=== PATIENT | female | born 1980 | race Caucasian/White ===

== ENCOUNTER 2019-08-30 09:10 | Outpatient (CLI) | payer OTHER, SELFPAY ==
--- NOTE | 2019-08-30 09:12 | ECG_ITS ---
Measurements Intervals [place] Rate: 95 P: 72 [place]: 156 QRS: -5 QRSD: 92 T: 27 QT: 378 QTc: 476 Interpretive Statements SINUS RHYTHM DELAYED PRECORDIAL R/S TRANSITION BASELINE ARTIFACT- I, II, III, AVR, AVL, AVF BORDERLINE ECG Electronically Signed On 08-30-2019 9:34:53 CDT by Damon Workman D.O.
[2019-08-30 09:39] LABS: Hematocrit 38.5 % (37.0-47.0); Hemoglobin 13.3 g/dL (12.0-15.0)
[2019-08-30 09:57] LABS: Blood Urea Nitrogen 9 mg/dL (7-17); Calcium 8.9 mg/dL (8.4-10.2); Carbon Dioxide 22 mmol/L (22-30); Chloride 103 mmol/L (98-107); Estimated Glomerular Filt Rate > 60; Glucose 162 mg/dL (65-105); Potassium 3.9 mmol/L (3.4-5.0); Sodium 134 mmol/L (137-145)
== END 2019-08-30 09:11 | disposition home or self-care (01) ==
LOC: ANHSURGERY 09:12
PROVIDERS: Anesthesiology; PCP Family Medicine; Visit Provider Obstetrics & Gynecology
DX: Z01.818 Encounter for other preprocedural examination (principal); E11.9 Type 2 diabetes mellitus without complications; R87.619 Unspecified abnormal cytological findings in specimens from cervix uteri
CPT/HCPCS: 36415; 80048; 85014; 85018; 93005

== ENCOUNTER 2019-09-05 01:08 | Outpatient (CLI) | payer OTHER, SELFPAY ==
[2019-09-05 18:07] LABS: SARS-CoV-2 RNA PCR Negative
== END 2019-09-05 01:09 | disposition home or self-care (01) ==
LOC: ANHCOVIDDT 01:08
PROVIDERS: PCP Family Medicine; Visit Provider Obstetrics & Gynecology
DX: Z01.818 Encounter for other preprocedural examination (principal); Z11.59 Encounter for screening for other viral diseases
CPT/HCPCS: 87635; C9803; U0003

== ENCOUNTER 2019-09-07 02:07 | Day surgery (SDC) | payer OTHER, SELFPAY ==
[2019-08-29 11:41] VITALS: BMI 45.4
--- NOTE | 2019-09-05 10:19 | PM.IMHP ---
H&P: HPI History of Present Illness Chief complaint: Abnormal PAP Narrative: Tracee Ortega is a 38 year old female who is admitted for hysteroscopy dilatation curettage. She has has ultrasound showing thickened endometrium and she has had irregular bleeding. She has had no success with pills. She also has a medical issues prior to well and was and benefits reviewed. She read the [employer] handout entitled hysteroscopy, as well as dilatation curettage, she had all questions answered asked to proceed Review of Systems Review of Systems: All systems reviewed & are unremarkable except as noted in HPI and below PMFSH Family History Family History Father Hypertension Grandparent Family history of lung cancer Diabetes mellitus Mother Family history of diabetes mellitus in first degree relative Other Family history of malignant neoplasm Social History Social History Years smoked: 5 Smoking status: Light tobacco smoker Additional smoking assessment comments: STATES INTERMITTENT TOBACCO USE. Alcohol intake: never Spiritual care concerns: No Meds Home Medications and Allergies Home Medications Medication Instructions Recorded Confirmed Type acyclovir 400 mg tablet 400 mg PO TID PRN 01/22/19 08/29/19 History glimepiride 4 mg tablet 4 mg PO BID tablet 01/22/19 08/29/19 History ibuprofen 800 mg tablet 800 mg PO TID PRN 01/22/19 08/29/19 History levothyroxine 100 mcg tablet 100 mcg PO DAILY 01/22/19 08/29/19 History omeprazole magnesium 20 mg 20 mg PO BID 01/22/19 08/29/19 History tablet,delayed release tizanidine 4 mg tablet 4 mg PO TID PRN 01/22/19 08/29/19 History venlafaxine 150 mg 150 mg PO BID #60 cap 05/24/19 08/29/19 Rx capsule,extended release 24 hr alprazolam 0.5 mg tablet 0.5 mg PO TID PRN #30 tablet 07/18/19 08/29/19 Rx lisinopril 5 mg tablet 5 mg PO DAILY #30 tablet 08/07/19 08/29/19 Rx bupropion HCl 300 mg 24 hr tablet, 300 mg PO QAM #90 tablet 06/25/20 07/01/20 Rx extended release metoprolol tartrate 25 mg tablet 25 mg PO BID #60 tablet 08/23/19 08/29/19 Rx cholecalciferol (vitamin D3) 50 mcg PO 3XW 08/29/19 08/29/19 History [Vitamin D3] multivitamin 1 tablet PO DAILY 08/29/19 08/29/19 History norgestimate-ethinyl estradiol 1 tablet PO DAILY 08/29/19 08/29/19 History [Estarylla] pioglitazone [Actos] 30 mg PO DAILY 08/29/19 08/29/19 History Allergies Allergy/AdvReac Type Severity Reaction Status Date / Time aspirin Allergy Unknown difficuty Verified 08/29/19 11:43 breathing cefuroxime Allergy Unknown Itching Verified 08/29/19 11:43 Penicillins Allergy Unknown Rash Verified 08/29/19 11:43 metformin AdvReac Mild diarrhea Verified 08/29/19 11:43 sitagliptin AdvReac Mild stomach Verified 08/29/19 11:43 pains Exam Const: General: no acute distress Eyes: General: appearance normal, both eyes and all related structures Neck: Neck: supple and no JVD Thyroid: thyroid normal Resp: Effort & Inspection: normal respiratory effort Auscultation: clear to auscultation bilaterally Cardio: Rate: regular rate Rhythm: regular rhythm GI: Inspection: non-distended GI Palp: Yes Soft to palpation, No Tenderness to palpation present (GI) and No Guarding due to palpation present (GI) Auscultation: normal bowel sounds : General: Yes bladder normal to palpation External Female Exam: normal external appearance Speculum Exam - Vagina: normal vaginal discharge and No vaginal bleeding Speculum Exam - Cervix: nontender Bimanual exam- vagina & uterus: bladder normal to palpation and No Cervical tenderness present OB/external & speculum: No vaginal bleeding Skin: General skin exam: no rashes or lesions noted Extrem: General: normal to inspection and no edema Psych: Mental Status: mental status grossly normal Affect: normal affect Assessment and Plan Additiona
[2019-09-07] VITALS (7 sets, daily range): BP systolic 106–117; BP diastolic 66–82; PULSE 75–112; RESP 18; TEMP 35.9–36.2; O2SAT 97–100
--- NOTE | 2019-09-07 06:49 | WPDHPUPDATE1 ---
History and Physical Update Update Date/Time: 09/07/19 06:49 History and Physical has been reviewed, including an updated exam of the patient. There are NO changes in the patient's condition. Risks, benefits, and alternatives have been discussed and questions answered. Patient agrees to proceed with procedure.
[2019-09-07] MEDS: LACTATED RINGERS 1,000 ML 30 ML IV CONT (10:10)
--- NOTE | 2019-09-07 10:18 | WPDANESEPPF ---
Anes - Initial Pre Proc Eval Procedure: Operation Date: 09/07/19 11:30 Proposed Procedures p Hysteroscopy, Dilation and Curettage - Magnus Allen MD Date/Time: 09/07/19 10:18 Surgeon: Magnus Allen MD Pre Op Diagnosis: Abnormal PAP Patient Data Age: 38 Gender: F Height: 5 ft 7 in Weight: 131.54 kg Last Vital Signs Temp 96.6 F L 09/07/19 10:15 Pulse 103 H 09/07/19 10:15 Resp 18 09/07/19 10:15 BP 117/82 09/07/19 10:15 Pulse Ox 98 09/07/19 10:15 Allergies Allergy/AdvReac Type Severity Reaction Status Date / Time aspirin Allergy Severe difficuty Verified 09/07/19 09:46 breathing cefuroxime Allergy Severe Itching Verified 09/07/19 09:46 Penicillins Allergy Intermediate Rash Verified 09/07/19 09:46 metformin AdvReac Mild diarrhea Verified 09/07/19 09:46 sitagliptin AdvReac Mild stomach Verified 09/07/19 09:46 pains Home Medications Medication Instructions Recorded Confirmed Type acyclovir 400 mg tablet 400 mg PO TID PRN 01/22/19 09/07/19 History glimepiride 4 mg tablet 4 mg PO BID tablet 01/22/19 09/07/19 History ibuprofen 800 mg tablet 800 mg PO TID PRN 01/22/19 08/29/19 History levothyroxine 100 mcg tablet 100 mcg PO DAILY 01/22/19 09/07/19 History omeprazole magnesium 20 mg 20 mg PO BID 01/22/19 09/07/19 History tablet,delayed release tizanidine 4 mg tablet 4 mg PO TID PRN 01/22/19 08/29/19 History venlafaxine 150 mg 150 mg PO BID #60 cap 05/24/19 09/07/19 Rx capsule,extended release 24 hr alprazolam 0.5 mg tablet 0.5 mg PO TID PRN #30 tablet 07/18/19 09/07/19 Rx lisinopril 5 mg tablet 5 mg PO DAILY #30 tablet 08/07/19 09/07/19 Rx bupropion HCl 300 mg 24 hr tablet, 300 mg PO QAM #90 tablet 08/23/19 09/07/19 Rx extended release metoprolol tartrate 25 mg tablet 25 mg PO BID #60 tablet 08/23/19 09/07/19 Rx cholecalciferol (vitamin D3) 50 mcg PO 3XW 08/29/19 09/07/19 History [Vitamin D3] multivitamin 1 tablet PO DAILY 08/29/19 09/07/19 History norgestimate-ethinyl estradiol 1 tablet PO DAILY 08/29/19 09/07/19 History [Estarylla] pioglitazone [Actos] 30 mg PO DAILY 08/29/19 09/07/19 History hydrocodone-acetaminophen [Ponca] 1 tablet PO Q4H PRN #20 tablet 09/07/19 Rx Patient hx anesthesia problems: none Family hx anesthesia problems: none PMFSH Family History Family History Father Hypertension Grandparent Family history of lung cancer Diabetes mellitus Mother Family history of diabetes mellitus in first degree relative Other Family history of malignant neoplasm Social History Social History Years smoked: 5 Smoking status: Light tobacco smoker Additional smoking assessment comments: STATES INTERMITTENT TOBACCO USE. Alcohol intake: never Spiritual care concerns: No Anes - Eval Final PreProcedure Day of Procedure 09/07/19 10:18 Patient weight: morbidly obese Heart: regular rate and rhythm Lungs: clear to auscultation Airway: Mallampati scale class III Neurological: alert and oriented Last oral intake: >/= 8 hours ASA classification: III Emergent: no Anesthetic plan: proceed Anesthesia type and monitoring: general (may use LMA) GIVS and standard monitoring Informed Consent: The patient's anesthetic plan and its attendant risks and benefits were discussed with the patient/family/POA. Questions were solicited and answers provided to the satisfaction of the patient/family/POA.
[2019-09-07 10:27] LABS: Glucose Point of Care 176 (65-105)
--- NOTE | 2019-09-07 11:29 | SUR.OPER ---
Ebl=5ml
--- NOTE | 2019-09-07 11:33 | PM.PROC ---
Procedure Note - Detailed Date of procedure: 09/07/19 Pre-op diagnosis: Abnormal PAP Surgeon: Magnus Allen MD postop diagnosis: Irregular bleeding and abnormal Pap Anesthesia: IV sedation and local Procedure: Hysteroscopy dilatation curettage Complications: None a Findings: Clots in thickened endometrium. Description of procedure: The patient was prepped and draped in the normal sterile fashion and placed in the dorsal lithotomy position. Under excellent IV sedation weighted speculum was placed in the posterior fornix of vagina. Anterior lip of the cervix was grasped with a single-tooth tenaculum and the uterus sounded to 9cm. Serial dilatation with fragmented dilators performed followed by passage of the 5mm visualizing hysteroscope using normal saline as visualizing medium. Thick endometrial tissue was seen each fallopian tube os could be seen and clots were seen. The uterus was scraped over the entire 360? until a good grating sound was heard. The instruments removed blood loss was estimated at5cc all sponge, needle, instrument counts were correct. There were no immediate complications
[2019-09-07 17:02] LABS: Glucose Point of Care 116 (65-105)
== END 2019-09-07 13:09 | disposition home or self-care (01) ==
PROVIDERS: PCP Family Medicine; Visit Provider Obstetrics & Gynecology
PROC: 0U5B8ZZ Destruction of Endometrium, Via Natural or Artificial Opening Endoscopic (ICD-10-PCS; CPT 58563; principal; 2019-09-07 11:30)
DX: N93.9 Abnormal uterine and vaginal bleeding, unspecified (principal); F17.200 Nicotine dependence, unspecified, uncomplicated; E66.01 Morbid (severe) obesity due to excess calories; Z68.42 Body mass index [BMI] 45.0-49.9, adult
CPT/HCPCS: 58558; 88305; A9270; J1100; J2250; J2405; J2704; J3010; J7030; J7120

== ENCOUNTER 2019-11-22 12:12 | Outpatient (CLI) | payer OTHER, SELFPAY ==
--- NOTE | 2019-11-22 | ECG_ITS ---
Measurements Intervals [place] Rate: 80 P: 74 ND: 153 QRS: -7 QRSD: 94 T: 13 QT: 394 QTc: 457 Interpretive Statements SINUS RHYTHM BORDERLINE T WAVE ABNORMALITY- INFERIOR LEADS BASELINE ARTIFACT- III, AVF BORDERLINE ECG Electronically Signed On 11-22-2019 13:14:47 CDT by Damon Workman D.O.
--- NOTE | ~2019-11-22 | XR_ITS ---
EXAMINATION: XR chest 2V EXAM DATE: 11/22/2019 13:40 INDICATION: High blood pressure. Preoperative gastric sleeve. TECHNIQUE: Frontal and lateral projections of the chest obtained and reviewed. Comparison is made to prior examination from 05/06/2017. FINDINGS: The lungs are clear. There are no pleural effusions. The cardiomediastinal silhouette is within normal limits. There is no pneumothorax suspected. The bones and soft tissues are unremarkab le. IMPRESSION: Normal chest x-ray exam. Reviewed, dictated and finalized at location B. IMPRESSION: Normal chest x-ray exam.
[2019-11-22 13:03] LABS: Basophils Percent Auto 0.3 % (0.2-1.2); Hematocrit 38.7 % (37.0-47.0); Hemoglobin 13.4 g/dL (12.0-15.0); Immature Granulocyte Absolute 0.04 K/mm3 (0.00-0.031); Immature Granulocyte Percent A 0.4 % (0-0.5); Lymphocytes Percent Auto 32.3 % (18.3-44.2); Mean Corpuscular HGB Conc 34.6 g/dl (32-36); Mean Corpuscular Volume 89.6 fl (80-100); Mean Platelet Volume 9.3 fl (7.4-10.4); Monocytes Absolute Auto 0.6 K/mm3 (0.1-0.6); Monocytes Percent Auto 6.8 % (2.6-8.5); Neutrophils Absolute Auto 5.4 K/mm3 (1.3-6.7); Neutrophils Percent Auto 60.2 % (45.5-73.1); Platelet Count Result 247 k/mm3 (150-375); Red Blood Count 4.32 M/mm3 (4.2-5.4)
[2019-11-22 13:13] LABS: Prothrombin Time 13.1 Seconds (11.1-14.7)
[2019-11-22 13:34] LABS: Alanine Aminotransferase 20 U/L (4-35); Albumin Level 4.2 g/dL (3.5-5.1); Alkaline Phosphatase 80 U/L (38-126); Anion Gap 9 mmol/L (8-16); Aspartate Amino Transferase 31 U/L (14-36); Bilirubin,Total 0.5 mg/dL (0.2-1.3); Blood Urea Nitrogen 10 mg/dL (7-17); Calcium 9.2 mg/dL (8.4-10.2); Carbon Dioxide 23 mmol/L (22-30); Chloride 103 mmol/L (98-107); Cholesterol 134 mg/dL (0-200); Estimated Glomerular Filt Rate > 60; Glucose 107 mg/dL (65-105); HDL Direct 33 mg/dL; Magnesium 1.5 mg/dL (1.6-2.3); Potassium 3.6 mmol/L (3.4-5.0); Sodium 135 mmol/L (137-145); Triglycerides 259 mg/dL (<150)
[2019-11-22 13:40] LABS: Vitamin D 25 Hydroxy 79.8 ng/mL
[2019-11-22 13:45] LABS: LDL Cholesterol Direct 62 mg/dL
[2019-11-22 14:23] LABS: Iron 82 ug/dL (37-170); Percent Iron Saturation 21 % (20-50)
[2019-11-22 15:20] LABS: Folic Acid 15.7 ng/mL (2.76->20)
[2019-11-26 10:34] LABS: Vitamin B1 15 nmol/L (8-30)
== END 2019-11-22 12:13 | disposition home or self-care (01) ==
LOC: ANHLAB 12:15
PROVIDERS: PCP Family Medicine; Visit Provider Surgery
DX: Z01.818 Encounter for other preprocedural examination (principal); E66.01 Morbid (severe) obesity due to excess calories
CPT/HCPCS: 36415; 71046; 80053; 80061; 82306; 82607; 82728; 82746; 83036; 83540; 83550; 83735; 83970; 84425; 84443; 85025; 85610; 93005

== ENCOUNTER 2019-12-16 12:03 | Emergency (ER) | payer OTHER, SELFPAY ==
[2019-12-16 12:18] VITALS: BP 132/65; PULSE 98; RESP 17; TEMP 37.2; O2SAT 97
--- NOTE | 2019-12-16 12:18 | ED.GENADULT ---
HPI - General Adult General Chief complaint: Upper Respiratory Infection Stated complaint: Sore throat Time Seen by Provider: 12/16/19 12:18 Source: patient Mode of arrival: ambulatory Limitations: no limitations History of Present Illness HPI narrative: 39-year-old female patient presents to the [facility] with complaints of a sore throat for the past 3 to 4 days. Patient denies any fevers, body aches or chills. Patient states she has had a little bit of ear pain with the sore throat as well but denies any coughing, chest pain or shortness of breath. 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 Patient states she has had strep throat before and states it feels very similar to when she has had strep throat in the past. Patient states she also does have allergy issues she is she has been taking a daily antihistamine as well but has not been helping with the throat pain. Related Data Home Medications Medication Instructions Recorded Confirmed glimepiride 4 mg tablet 4 mg PO BID tablet 01/22/19 12/16/19 levothyroxine 100 mcg tablet 100 mcg PO DAILY 01/22/19 12/16/19 omeprazole magnesium 20 mg 20 mg PO BID 01/22/19 12/16/19 tablet,delayed release tizanidine 4 mg tablet 4 mg PO TID PRN 01/22/19 12/16/19 cholecalciferol (vitamin D3) 50 mcg PO 3XW 08/29/19 12/16/19 [Vitamin D3] multivitamin 1 tablet PO DAILY 08/29/19 12/16/19 norgestimate-ethinyl estradiol 1 tablet PO DAILY 08/29/19 12/16/19 [Estarylla] pioglitazone [Actos] 30 mg PO DAILY 08/29/19 12/16/19 empagliflozin [Jardiance] 10 mg PO DAILY 12/16/19 12/16/19 Allergies Allergy/AdvReac Type Severity Reaction Status Date / Time aspirin Allergy Severe difficuty Verified 12/16/19 12:18 breathing cefuroxime Allergy Severe Itching Verified 12/16/19 12:18 Penicillins Allergy Intermediate Rash Verified 12/16/19 12:18 metformin AdvReac Mild diarrhea Verified 12/16/19 12:18 sitagliptin AdvReac Mild stomach Verified 12/16/19 12:18 pains Review of Systems Review of Systems: Narrative: CONSTITUTIONAL: Denies fever, chills, or sweats. EYES: Denies visual changes, redness, or discharge. ENT: Positive rhinorrhea, congestion, positive sore throat, positive bilateral otalgia. CARDIOVASCULAR: Denies chest pain, palpitations, or edema. RESPIRATORY: Denies cough or dyspnea. GASTROINTESTINAL: Denies abdominal pain, nausea, vomiting, or diarrhea. GENITOURINARY: Denies dysuria or hematuria. SKIN: Denies rash or itching. MUSCULOSKELETAL: Denies back pain, joint pain, or myalgia. NEUROLOGIC: Denies headache, numbness, or weakness. PSYCHIATRIC: Denies anxiety or depression. [facility] Past Medical History Medical History Anxiety disorder, unspecified Hypertension complicating diabetes Hypothyroidism Morbid obesity due to excess calories KATHRINE (obstructive sleep apnea) Type 2 diabetes mellitus without complications Family History Family History Father Hypertension Grandparent Family history of lung cancer Diabetes mellitus Mother Family history of diabetes mellitus in first degree relative Other Family history of malignant neoplasm Social History Social History Years smoked: 5 Smoking status: Light tobacco smoker Additional smoking assessment comments: STATES INTERMITTENT TOBACCO USE. Alcohol intake: never Spiritual care concerns: No Comments At the time of my signature I agree with nursing past medical history, surgical, social, and family history. There is no relevant family history pertinent to the presenting complaint. Exam Narrative: Exam Narrative: GENERAL: Well-appearing, well-nourished, and in no acute distress. HEAD: Normocephalic, atraumatic. EYES: PERRLA and EOMI. ENT: Nares clear, no rhinorrhea or epistaxis. Mucous membranes moist posterior pharynx with very slight eryth
[2019-12-16 12:28] VITALS: BP 132/65; PULSE 98; RESP 17; TEMP 37.2; O2SAT 97
== END 2019-12-16 12:36 | disposition home or self-care (01) ==
PROVIDERS: Emergency Provider Nurse Practitioner Family; PCP Family Medicine
DX: J02.0 Streptococcal pharyngitis (principal); Z72.0 Tobacco use; I10 Essential (primary) hypertension; E11.9 Type 2 diabetes mellitus without complications; E03.9 Hypothyroidism, unspecified; G47.33 Obstructive sleep apnea (adult) (pediatric); E66.01 Morbid (severe) obesity due to excess calories; Z68.42 Body mass index [BMI] 45.0-49.9, adult
CPT/HCPCS: 87880; 99213; G0463

== ENCOUNTER → 2020-12-25 01:35 | Outpatient (CLI) | payer OTHER, SELFPAY ==
[2020-12-25 17:33] LABS: SARS-CoV-2 RNA PCR Negative
== END ==
PROVIDERS: PCP Family Medicine; Visit Provider Nurse Practitioner Family
DX: R68.89 Other general symptoms and signs (principal); Z20.822 Contact with and (suspected) exposure to COVID-19
CPT/HCPCS: C9803; U0003; U0005

== ENCOUNTER 2021-02-10 09:05 | Outpatient (CLI) | payer OTHER, SELFPAY ==
--- NOTE | 2021-02-10 09:29 | ECG_ITS ---
Measurements Intervals [place] Rate: 77 P: 35 [place]: 143 QRS: -9 QRSD: 92 T: 15 QT: 401 QTc: 454 Interpretive Statements SINUS RHYTHM BASELINE ARTIFACT- I, II, III, AVR, AVL, AVF NORMAL ECG Electronically Signed On 02-10-2021 10:04:18 PROJECT ADMINISTRATIVE ASSISTANT by Damon Workman D.O.
[2021-02-10 11:10] LABS: Basophils Absolute Auto 0.1 K/mm3 (0.0-0.1); Basophils Percent Auto 0.5 % (0.2-1.2); Hemoglobin 14.8 g/dL (12.0-15.0); Immature Granulocyte Absolute 0.03 K/mm3 (0.00-0.031); Immature Granulocyte Percent A 0.3 % (0-0.5); Lymphocytes Absolute Auto 2.98 K/mm3 (0.9-3.2); Lymphocytes Percent Auto 30.9 % (18.3-44.2); Mean Corpuscular HGB Conc 35.2 g/dl (32-36); Mean Corpuscular Hemoglobin 31.8 pg (26-34); Mean Corpuscular Volume 90.3 fl (80-100); Mean Platelet Volume 9.9 fl (7.4-10.4); Monocytes Absolute Auto 0.7 K/mm3 (0.1-0.6); Monocytes Percent Auto 7.7 % (2.6-8.5); Neutrophils Absolute Auto 5.8 K/mm3 (1.3-6.7); Neutrophils Percent Auto 60.6 % (45.5-73.1); Platelet Count Result 259 k/mm3 (150-375); Red Blood Count 4.65 M/mm3 (4.2-5.4); Red Cell Distribution Width 12.7 % (11.5-14.5); White Blood Count 9.6 K/mm3 (4.5-10.0)
[2021-02-10 11:21] LABS: Anion Gap 9 mmol/L (8-16); Blood Urea Nitrogen 12 mg/dL (7-17); Calcium 9.3 mg/dL (8.4-10.2); Carbon Dioxide 21 mmol/L (22-30); Chloride 104 mmol/L (98-107); Estimated Glomerular Filt Rate > 60; Glucose 99 mg/dL (65-110); Potassium 3.6 mmol/L (3.4-5.0); Sodium 134 mmol/L (137-145)
== END 2021-02-10 09:06 | disposition home or self-care (01) ==
PROVIDERS: Anesthesiology; PCP Family Medicine; Visit Provider Obstetrics & Gynecology
DX: Z01.818 Encounter for other preprocedural examination (principal); N85.2 Hypertrophy of uterus; E11.9 Type 2 diabetes mellitus without complications; I10 Essential (primary) hypertension
CPT/HCPCS: 36415; 80048; 80061; 82306; 82607; 84439; 84443; 85025; 86850; 86900; 86901; 93005

== ENCOUNTER 2021-02-10 09:37 | Outpatient (CLI) | payer OTHER, SELFPAY ==
[2021-02-10 11:17] LABS: Cholesterol 138 mg/dL (0-200); HDL Direct 34 mg/dL; Triglycerides 178 mg/dL (<150)
[2021-02-10 11:27] LABS: LDL Cholesterol Direct 71 mg/dL
[2021-02-10 12:00] LABS: Free T4 Free Thyroxine 1.33 ng/mL (0.78-2.19); Vitamin D 25 Hydroxy 65.8 ng/mL
== END 2021-02-10 09:38 | disposition home or self-care (01) ==
LOC: ANHLAB 09:38
PROVIDERS: PCP Family Medicine; Visit Provider Nurse Practitioner Family
DX: R79.89 Other specified abnormal findings of blood chemistry (principal); Z13.220 Encounter for screening for lipoid disorders; E53.8 Deficiency of other specified B group vitamins
CPT/HCPCS: 36415; 80061; 82306; 82607; 84439; 84443

== ENCOUNTER 2021-02-13 00:11 | Day surgery (SDC) | payer OTHER, SELFPAY ==
[2021-02-05 10:13] VITALS: BMI 39.1
--- NOTE | 2021-02-05 10:27 | PC.NURSE ---
Report to the Outpatient Waiting Room, entrance under the green pavilion located off [facility], at time 6:00 on date 02/13/21. OR Time: 7:30. - You and your visitor will be asked a series of questions to screen for COVID 19 for your protection. - A mask is required within the hospital. - Only one visitor is allowed at this time. Patient visitors will be guided where to wait when not with patient. Preoperative COVID Testing Requirements: No COVID Test needed if: (proof is required; if not received patient will have Rapid Test prior to entry) - Patient has received COVID Vaccine at least 14 days prior to procedure date or - Patient has positive COVID test result within last 90 days of surgery date. COVID Test needed if above criteria is not met If not COVID vaccinated a COVID test must be conducted within 72 hours of surgery and patient is asked to isolate self from time of testing until procedure. You will go to the [facility] [employer] [facility] for your COVID testing. The [facility] [employer] [facility] site is located at the corner of [address] [facility]. You will only be called if COVID results are positive and your surgeon may reschedule your elective surgery date. Patients may have clear liquids (water, carbonated beverages, clear teas, apple juice) until 3 hours prior to surgery with a maximum of 20 ounces. - No food from midnight until time of surgery - Infants may have breast milk until 4 hours before surgery, infant formula 6 hours prior to surgery. - Children will be allowed to drink immediately following surgery. If applicable, please bring a bottle or sippy cup to assist with drinking. Juice, water, soda, and popsicles are readily available. For infants on formula, please bring formula the day of surgery. Pacifiers are allowed. Take the following medications with a SIP of water the morning of surgery: BUPROPION, LEVOTHYROXINE, METOPROLOL, VENLAFAXINE, ALPRAZOLAM (IF NEEDED) Medications to discontinue per physician: VITAMINS/SUPPLEMENTS Date to take last dose: 02/09/21 Please no make-up, nail yoruba, hairspray, perfume, deodorant, or body powder the day of surgery. No jewelry (including any body piercings) or valuables the day of surgery, leave them at home. Please take a shower or bath the night before, or the morning of, surgery with an antibacterial soap. Wear comfortable, loose fitting clothing. Children are encouraged to wear pajamas. - Jewelry must be removed prior to entering the operating room. Rings and piercings that are not removed may be cut off. - The hospital will not accept responsibility for valuables. - Please leave all valuables, including medications, at home the day of surgery. If you are going home after surgery, a licensed carry all driver must drive you home. - NO public transportation without another adult. - We recommend that an adult stay with you for 24 hours following discharge. - We also recommend that you do not drive, make important decision, drink alcoholic beverages, or take any drugs that were not prescribed by your health care provider for at least 24 hours after your discharge time. For Pediatric surgeries, we recommend two adults accompany the child home (only one inside the building at this time). Follow any additional instructions given to you from your surgeon. Telephone instructions given to FARHANA CATALAN and asked if any additional questions and then verbalized understanding. Patient advised to call surgeon office or pre surgery nurse liaison [phone] if any additional questions.
--- NOTE | 2021-02-10 16:09 | PM.IMHP ---
H&P: HPI History of Present Illness Date/Time: 02/10/21 16:09 39-year-old female admitted for robotic total vaginal hysterectomy and bilateral salpingectomy secondary to history of abnormal Paps uterine prolapse and pelvic pain. The patient has a long history of pelvic pain and dyspareunia and has known prolapse. Risks and benefits of this procedure reviewed including not exclusive of , aspiration pneumonia, bleeding trend, transfusion, trocar perforation under bowel, bladder, ureters, or other internal organs with need for laparotomy. She had all questions answered and asked proceeded Chief Complaint: Pelvic pain and prolapse Review of Systems Review of Systems: All systems reviewed & are unremarkable except as noted in HPI and below PMFSH Past Medical History Medical History Anxiety disorder, unspecified BMI 39.0-39.9,adult BMI 40.0-44.9, adult COVID-19 Hypertension complicating diabetes Hypothyroidism Morbid obesity due to excess calories KATHRINE (obstructive sleep apnea) Type 2 diabetes mellitus without complications Surgical History Surgical History H/O dilation and curettage Family History Family History Father Hypertension Hyperlipidemia Diabetes mellitus Grandparent Family history of lung cancer Diabetes mellitus Mother Family history of diabetes mellitus in first degree relative Hypertension Hyperlipidemia Sibling Hypertension GERD (gastroesophageal reflux disease) Other Family history of malignant neoplasm Social History Social History Smoking packs per day: 0.5 Smoking cigarettes per day: 10.0 Years smoked: 6 Smoking pack-years: 3.00 Tobacco type: cigarettes Second hand tobacco smoke exposure: Yes Smoking end date: 02/28/17 Additional smoking assessment comments: STATES INTERMITTENT TOBACCO USE. 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[employer] Gender identity (if verbalized by the patient): Female Spiritual care concerns: No Meds Home Medications and Allergies Home Medications Medication Instructions Recorded Confirmed Type levothyroxine 100 mcg tablet 100 mcg PO DAILY 01/22/19 02/10/21 History omeprazole magnesium 20 mg 40 mg PO DAILY 01/22/19 02/10/21 History tablet,delayed release cholecalciferol (vitamin D3) 50 mcg PO 3XW 08/29/19 02/10/21 History [Vitamin D3] multivitamin 1 tablet PO DAILY 08/29/19 02/10/21 History empagliflozin [Jardiance] 10 mg PO DAILY 12/16/19 02/10/21 History glimepiride 2 mg tablet 2 mg PO QAM #30 tablet 06/18/20 02/10/21 Rx alprazolam 0.5 mg tablet 0.5 mg PO TID PRN #30 tablet 09/12/20 02/10/21 Rx lisinopril 5 mg tablet 5 mg PO DAILY #30 tablet 12/15/20 02/10/21 Rx metoprolol tartrate 25 mg tablet 25 mg PO BID #60 tablet 12/15/20 02/10/21 Rx bupropion HCl 300 mg 24 hr tablet, 300 mg PO QAM #90 tablet 01/27/21 02/10/21 Rx extended release venlafaxine 150 mg 150 mg PO BID #180 cap 01/27/21 02/10/21 Rx capsule,extended release 24 hr loratadine [Claritin] 10 mg PO HS 02/05/21 02/10/21 History vitamin B complex [B 1 tablet PO DAILY 02/05/21 02/10/21 History Complex-Vitamin B12] acyclovir 400 mg tablet 400 mg PO TID PRN #90 tablet 02/10/21 02/10/21 Rx doxycycline monohydrate 100 mg 100 mg PO BID #20 tablet 02/10/21 02/10/21 Rx tablet mupirocin 2 % topical ointment 1 applic TOPICAL BID #15 g 02/10/21 02/10/21 Rx Allergies Allergy/AdvReac Type Severity Reaction Status Date / Time aspirin Allergy Severe difficuty Verified 02/10/21 10:31 breathing cefuroxime Aller
[2021-02-13] VITALS (11 sets, daily range): BP systolic 82–103; BP diastolic 43–67; PULSE 72–108; RESP 16–21; TEMP 36.1–36.6; O2SAT 93–100
--- NOTE | 2021-02-13 06:54 | WPDHPUPDATE1 ---
History and Physical Update Update Date/Time: 02/13/21 06:54 History and Physical has been reviewed, including an updated exam of the patient. There are NO changes in the patient's condition. Risks, benefits, and alternatives have been discussed and questions answered. Patient agrees to proceed with procedure.
[2021-02-13] MEDS: LACTATED RINGERS 1,000 ML 30 ML IV CONT (06:59)
[2021-02-13 07:05] LABS: Glucose Point of Care 133 mg/dl (65-105)
--- NOTE | 2021-02-13 07:06 | WPDANESEPPF ---
Anes - Initial Pre Proc Eval Procedure: Operation Date: 02/13/21 07:30 Proposed Procedures p Robotic Assisted Total Vaginal Hysterectomy, with Bilateral Salpingectomy - Magnus Allen MD Date/Time: 02/13/21 07:06 Surgeon: Magnus Allen MD Pre Op Diagnosis: pelvic pain, enlarged uterus, prolapse Patient Data Age: 40 Gender: F Height: 1.7 m Weight: 113.4 kg Allergies Allergy/AdvReac Type Severity Reaction Status Date / Time aspirin Allergy Severe difficuty Verified 02/13/21 07:04 breathing cefuroxime Allergy Intermediate Itching Verified 02/13/21 07:04 Penicillins Allergy Intermediate Rash Verified 02/13/21 07:04 metformin AdvReac Mild diarrhea Verified 02/13/21 07:04 sitagliptin AdvReac Mild stomach Verified 02/13/21 07:04 pains Home Medications Medication Instructions Recorded Confirmed Type levothyroxine 100 mcg tablet 100 mcg PO DAILY 01/22/19 02/10/21 History omeprazole magnesium 20 mg 40 mg PO DAILY 01/22/19 02/10/21 History tablet,delayed release cholecalciferol (vitamin D3) 50 mcg PO 3XW 08/29/19 02/10/21 History [Vitamin D3] multivitamin 1 tablet PO DAILY 08/29/19 02/10/21 History empagliflozin [Jardiance] 10 mg PO DAILY 12/16/19 02/10/21 History glimepiride 2 mg tablet 2 mg PO QAM #30 tablet 06/18/20 02/10/21 Rx alprazolam 0.5 mg tablet 0.5 mg PO TID PRN #30 tablet 09/12/20 02/10/21 Rx lisinopril 5 mg tablet 5 mg PO DAILY #30 tablet 12/15/20 02/10/21 Rx metoprolol tartrate 25 mg tablet 25 mg PO BID #60 tablet 12/15/20 02/10/21 Rx bupropion HCl 300 mg 24 hr tablet, 300 mg PO QAM #90 tablet 01/27/21 02/10/21 Rx extended release venlafaxine 150 mg 150 mg PO BID #180 cap 01/27/21 02/10/21 Rx capsule,extended release 24 hr loratadine [Claritin] 10 mg PO HS 02/05/21 02/10/21 History vitamin B complex [B 1 tablet PO DAILY 02/05/21 02/10/21 History Complex-Vitamin B12] acyclovir 400 mg tablet 400 mg PO TID PRN #90 tablet 02/10/21 02/10/21 Rx doxycycline monohydrate 100 mg 100 mg PO BID #20 tablet 02/10/21 02/10/21 Rx tablet mupirocin 2 % topical ointment 1 applic TOPICAL BID #15 g 02/10/21 02/10/21 Rx hydrocodone-acetaminophen 1 tablet PO Q4H PRN #30 tablet 02/13/21 Rx Laboratory Tests 02/13/21 07:01 POC Capillary Glucose 133 mg/dl H mg/dl (65-105) Patient hx anesthesia problems: none Family hx anesthesia problems: none Results Review: All pre-operative results and documents have been reviewed as part of the pre-operative evaluation. [facility] Past Medical History Medical History Anxiety disorder, unspecified BMI 39.0-39.9,adult BMI 40.0-44.9, adult COVID-19 Hypertension complicating diabetes Hypothyroidism Morbid obesity due to excess calories KATHRINE (obstructive sleep apnea) Type 2 diabetes mellitus without complications Surgical History Surgical History H/O dilation and curettage Family History Family History Father Hypertension Hyperlipidemia Diabetes mellitus Grandparent Family history of lung cancer Diabetes mellitus Mother Family history of diabetes mellitus in first degree relative Hypertension Hyperlipidemia Sibling Hypertension GERD (gastroesophageal reflux disease) Other Family history of malignant neoplasm Social History Social History Smoking packs per day: 0.5 Smoking cigarettes per day: 10.0 Years smoked: 6 Smoking pack-years: 3.00 Tobacco type: cigarettes Second hand tobacco smoke exposure: Yes Smoking end date: 02/28/17 Additional smoking assessment comments: STATES INTERMITTENT TOBACCO USE. Alcohol intake: current Alcohol use details: VERY RARE Substance use: never Substance use type: does not use Living arrangements: with family Additional living
[2021-02-13] MEDS: ACETAMINOPHEN 500 MG TABLET 1000 MG PO (07:13)
[2021-02-13] MEDS: CLINDAMYCIN 900 MG/D5W 50 ML 900 MG/50 ML PIGGYBACK 50 MG IVPB (07:26)
--- NOTE | 2021-02-13 08:34 | W.PM.PROC2 ---
Procedure Note - Detailed Date of Procedure 02/13/21 Pre-op Diagnosis pelvic pain, enlarged uterus, prolapse Post-op Diagnosis same Procedure Performed Robotic total vaginal hysterectomy and bilateral salpingectomy Surgeon Magnus Allen MD Anesthesia general Indications this is a 40-year-old female with a history of prolapse enlarged uterus and pelvic pain Findings uterine prolapse. Normal-appearing ovaries and tubes Description of Procedure the patient is prepped draped in the normal sterile fashion placed in the dorsal lithotomy position. Under excellent general endotracheal anesthesia weighted speculum placed in posterior fornix vagina. Anterior lip of the cervix grasped with a single-tooth tenaculum and the uterus sounded to 10cm. Serial dilatation with fragmented dilators performed followed passes of 10. NAGI and the 3. Cold cup. Next the 16 Mohawk catheter was placed in the bladder and drained of clear urine the weighted speculum was removed and gloves were changed. A supraumbilical incision made the Veress needle passed in the abdomen. Abdomen filled with CO2 gas to 15mm Hg. The 8mm trocar advanced in the abdomen downside visualized in order seen P. Patient placed in Trendelenburg and right left lower quadrant incision made 8mm trocars advanced under direct visualization assuring no injury. Right upper quadrant incision made the 8mm trocar advanced under direct visualization assuring injury. The robot was docked. Attention was turned to the school guidance counselor. Multiple adhesions were seen colon to the left lateral sidewall. Using sharp dissection this was these were easily taken down and exposing the left adnexa. The fallopian tube was then dissected away using sharp dissection and cautery and brought to the its entry to the uterus. In like fashion the right fallopian tube was teased away and sharply dissected away from the ovarian complex. The left utero-ovarian ligament was then clamped, burned, cut and brought to the level of previously cut round ligament conserving the right left ovary. In like fashion the right the right ovary was conserved by clamping burning and cutting the utero-ovarian ligament on the right and bringing this to the level of previously cut round ligament. The left cardinal and broad ligaments were serially skeletonized brought down the lateral edge of the uterus clamping burning and cutting until the uterine vessels could be seen on the left. These were large and tortuous and individually clamped, burned, cut. In like fashion the cardinal broad ligaments on the right were serially skeletonized. These were clamped, burned, cut and brought down the lateral edge of the uterus until the uterine vessels could be seen on the right. These were individually clamped, burned, cut. Excellent blanching of the uterus was seen and a colpotomy incision made. Cervix uterus and tubes were brought through the vagina. Blood loss estimated [id number]. Vagina was closed with continuous running 0V lock from lateral edge to lateral edge back to the midline. All pedicles appeared hemostatic and the robot was undocked. The gas removed from the abdomen and the trocars removed. The incisions closed with 4 Monocryl and glue and the patient was awakened. She went to recovery in satisfactory condition. All sponge, needle, instrument counts were correct. There were no immediate complications Estimated Blood Loss 25 Drains No Packing No Pathology yes Complications No immediate complications Condition stable Disposition PACU
[2021-02-13 09:17] LABS: Glucose Point of Care 170 mg/dl (65-105)
--- NOTE | 2021-02-13 09:23 | SUR.PHASEI ---
Simple mask removed at 0923.
--- NOTE | 2021-02-13 10:08 | PC.NURSE ---
This patient, Tracee Ortega, was received from PACU per bed to room 288. Patient/family oriented to unit policies and routines
[2021-02-13] MEDS: LACTATED RINGERS 1,000 ML 125 ML (10:34)
[2021-02-13] MEDS: HYDROcodone/acetaminophen (*CRX) 5-325 MG TABLET 1 TAB PO (14:06)
[2021-02-13] MEDS: ACETAMINOPHEN 325 MG TABLET 650 MG PO (19:50)
[2021-02-14 04:30] VITALS: BP 109/70; PULSE 88; RESP 16; TEMP 36.4
[2021-02-14] MEDS: IBUPROFEN 600 MG TABLET PO ×2 (04:43→10:03)
[2021-02-14] MEDS: ACETAMINOPHEN 325 MG TABLET 650 MG PO ×2 (04:43→10:03)
[2021-02-14 05:14] LABS: Basophils Percent Auto 0.3 % (0.2-1.2); Hemoglobin 13.7 g/dL (12.0-15.0); Immature Granulocyte Absolute 0.05 K/mm3 (0.00-0.031); Immature Granulocyte Percent A 0.4 % (0-0.5); Lymphocytes Absolute Auto 2.58 K/mm3 (0.9-3.2); Lymphocytes Percent Auto 22.1 % (18.3-44.2); Mean Corpuscular HGB Conc 34.3 g/dl (32-36); Mean Corpuscular Hemoglobin 31.8 pg (26-34); Mean Corpuscular Volume 92.8 fl (80-100); Mean Platelet Volume 9.4 fl (7.4-10.4); Monocytes Absolute Auto 0.7 K/mm3 (0.1-0.6); Monocytes Percent Auto 6.1 % (2.6-8.5); Neutrophils Absolute Auto 8.3 K/mm3 (1.3-6.7); Neutrophils Percent Auto 71.1 % (45.5-73.1); Platelet Count Result 227 k/mm3 (150-375); Red Blood Count 4.31 M/mm3 (4.2-5.4); Red Cell Distribution Width 12.3 % (11.5-14.5); White Blood Count 11.7 K/mm3 (4.5-10.0)
[2021-02-14 08:03] VITALS: BP 88/51; PULSE 90; RESP 18; TEMP 36.2; O2SAT 98
[2021-02-14] MEDS: ENOXAPARIN 40 MG/0.4 ML SYRINGE SUB-Q (08:31)
[2021-02-14] MEDS: DOCUSATE SODIUM 100 MG CAPSULE PO (08:31)
--- NOTE | 2021-02-14 09:40 | WPDANESPN ---
Anes - Prog Note Post-Op Date/Time: 02/14/21 09:40 Cardiovascular status: normal Respiratory status: normal Airway patency: baseline Mental status: baseline Post-Op hydration status: normal Vital Signs: Last Vital Signs Temp 97.2 F L 02/14/21 08:03 Pulse 90 02/14/21 08:03 Resp 18 02/14/21 08:03 BP 88/51 L 02/14/21 08:03 Pulse Ox 98 02/14/21 08:03 Pain Score (VAS): 3 I/O: Intake & Output 02/13/21 02/14/21 02/14/21 23:59 07:59 15:59 Intake Total 1515 1400 200 Output Total 1999 1999 Balance -485 -600 200 Laboratory Tests 02/14/21 04:33 02/14/21 04:33 WBC 11.7 H RBC 4.31 Hgb 13.7 Hct 40.0 MCV 92.8 MCH 31.8 MCHC 34.3 RDW 12.3 Plt Count 227 MPV 9.4 Immature Gran % (Auto) 0.4 Neut % (Auto) 71.1 Lymph % (Auto) 22.1 Wright % (Auto) 6.1 Eos % (Auto) 0.0 Baso % (Auto) 0.3 Lymph # (Auto) 2.58 Wright # (Auto) 0.7 H Eos # (Auto) 0.0 Baso # (Auto) 0.0 Abs Immat Gran (auto) 0.05 H Absolute Neuts (auto) 8.3 H Absolute Nucleated RBC 0.0 Nucleated RBC % 0.0 Post-procedural complaints: none Patient Feedback: Patient satisfied with anesthetic care.
--- NOTE | 2021-02-14 09:59 | PM.GYNPNOP ---
HOME HEALTH SPEECH THERAPIST - A/P Postoperative Procedures: Procedures Operation Date: 02/13/21 07:30 Actual Procedure Side Surgeon p Robotic Assisted Total Vaginal Hysterectomy, with Bilateral Salpingectomy Magnus Allen MD A: POD#1, doing well. P: Home to f/u 2 weeks. Time Spent With Patient Time with patient: less than 15 minutes HOME HEALTH SPEECH THERAPIST- PN:Subj Post-Op Subjective Date/time seen: 02/14/21 09:59 Interval history: Pain OK. Tolerating diet. Voiding. Would like to go home. Exam Narrative: AVSS I/O OK ABD soft, nontender. Incisions c/d/i. EXT nontender HOME HEALTH SPEECH THERAPIST - PN: Obj Data Vital Signs Vital Signs: Vital Signs - 24 hr 02/13/21 10:15 02/13/21 11:34 02/13/21 17:20 Temperature 36.2 C L 36.1 C L 36.3 C L Pulse Rate 80 80 108 H Respiratory Rate 18 18 18 Blood Pressure 88/54 L 82/51 L 84/43 L Pulse Oximetry 100 98 02/13/21 19:20 02/14/21 04:30 02/14/21 08:03 Temperature 36.6 C 36.4 C 36.2 C L Pulse Rate 100 88 90 Respiratory Rate 16 16 18 Blood Pressure 95/58 L 109/70 88/51 L Pulse Oximetry 98 Intake/Output Intake/Output: Intake & Output 02/11/21 02/12/21 02/13/21 02/14/21 23:59 23:59 23:59 23:59 Intake Total 2315 1600 Output Total 2380 1999 Balance -65 -400 Meds/Results Medications: Active Medications Generic Name Dose Route Start Last Admin Trade Name Freq PRN Reason Stop Dose Admin Acetaminophen 650 mg 02/13/21 19:29 02/14/21 04:43 Acetaminophen 325 Mg Tablet PO 650 mg Q6H PRN Administration Headache Hydrocodone Bitart/Acetaminophen 1 tab 02/13/21 09:57 02/13/21 14:06 Hydrocodone/Acetaminophen (*Crx) 5-325 Mg Tablet PO 1 tab Q3H PRN Administration Pain Rated 5 or Less Hydrocodone Bitart/Acetaminophen 1 tab 02/13/21 09:57 Hydrocodone/Acetaminophen (*Crx) 10-325 Mg Tablet PO Q3H PRN Pain Rated 6 or Greater Docusate Sodium 100 mg 02/13/21 09:57 02/14/21 08:31 Docusate Sodium 100 Mg Capsule PO 100 mg BID RUFUS Administration Enoxaparin Sodium 40 mg 02/13/21 09:57 02/14/21 08:31 Enoxaparin 40 Mg/0.4 Ml Syringe SUB-Q 40 mg DAILY RUFUS Administration Ibuprofen 600 mg 02/13/21 09:57 02/14/21 04:43 Ibuprofen 600 Mg Tablet PO 600 mg Q6H PRN Administration Cramping Ketorolac Tromethamine 30 mg 02/13/21 09:57 Ketorolac 30 Mg/Ml Vial (*Bkc) IV PUSH 02/18/21 09:56 Q6H PRN Pain Rated 4-6 Naloxone HCl 0.1 mg 02/13/21 09:57 Naloxone Hcl 0.4 Mg/Ml Vial IV PUSH Q2M PRN Respiratory rate less than 10 Ondansetron HCl 4 mg 02/13/21 09:57 Ondansetron Inj 4 Mg/2 Ml Vial IV PUSH Q6H PRN Nausea And Vomiting Simethicone 80 mg 02/13/21 09:57 Simethicone 80 Mg Tab.Chew PO Q2H PRN Gas Labs CBC & Chem 7: 02/14/21 04:33 Labs: Laboratory Results - last 24 hr 02/14/21 04:33 WBC 11.7 H RBC 4.31 Hgb 13.7 Hct 40.0 MCV 92.8 MCH 31.8 MCHC 34.3 RDW 12.3 Plt Count 227 MPV 9.4 Immature Gran % (Auto) 0.4 Neut % (Auto) 71.1 Lymph % (Auto) 22.1 Trinity % (Auto) 6.1 Eos % (Auto) 0.0 Baso % (Auto) 0.3 Lymph # (Auto) 2.58 Trinity # (Auto) 0.7 H Eos # (Auto) 0.0 Baso # (Auto) 0.0 Abs Immat Gran (auto) 0.05 H Absolute Neuts (auto) 8.3 H Absolute Nucleated RBC 0.0 Nucleated RBC % 0.0
== END 2021-02-14 10:39 | disposition home or self-care (01) ==
LOC: ANHSURGERY 06:56 → ANHOB2 10:00
PROVIDERS: PCP Family Medicine; Visit Provider Obstetrics & Gynecology
PROC: (CPT 58552; principal; 2021-02-13 07:30)
DX: R10.2 Pelvic and perineal pain (principal); N84.0 Polyp of corpus uteri; N73.6 Female pelvic peritoneal adhesions (postinfective); N81.4 Uterovaginal prolapse, unspecified; N94.10 Unspecified dyspareunia; E11.9 Type 2 diabetes mellitus without complications; E03.9 Hypothyroidism, unspecified; I10 Essential (primary) hypertension; G47.33 Obstructive sleep apnea (adult) (pediatric); F41.9 Anxiety disorder, unspecified; E66.01 Morbid (severe) obesity due to excess calories; Z68.41 Body mass index [BMI] 40.0-44.9, adult; Z72.0 Tobacco use; Z79.84 Long term (current) use of oral hypoglycemic drugs
CPT/HCPCS: 58552; S2900; 36415; 82948; 85025; 88307; 99199; A9270; J0461; J1100; J1580; J1650; J2250; J2270; J2370; J2405; J2704; J2710; J7030; J7120

== ENCOUNTER 2021-10-14 17:43 | Outpatient (CLI) | payer OTHER, SELFPAY ==
--- NOTE | ~2021-10-14 | XR_ITS ---
EXAMINATION: XR sacrum coccyx min 2V DATE: 10/14/2021 18:01 INDICATION: Sacrococcygeal disorders, not elsewhere classified. Coccygeal pain. Fall. TECHNIQUE: 3 views of sacrum and coccyx were obtained. COMPARISON: CT abdomen and pelvis 11/22/2014 FINDINGS: Bone alignment is normal. No fracture. There is mild lumbar spondylosis. The sacroiliac faby nts are normal. IMPRESSION: 1. No fracture. Reviewed, dictated and finalized at location A. IMPRESSION: 1. No fracture.
== END 2021-10-14 17:44 | disposition home or self-care (01) ==
PROVIDERS: PCP Family Medicine; Visit Provider Nurse Practitioner Family
DX: M53.3 Sacrococcygeal disorders, not elsewhere classified (principal)
CPT/HCPCS: 72220

== ENCOUNTER 2021-11-02 11:25 | Emergency (ER) | payer OTHER, SELFPAY ==
[2021-11-02 11:32] VITALS: BP 127/82; PULSE 84; RESP 18; TEMP 36.2; O2SAT 97
--- NOTE | 2021-11-02 11:56 | ED.GENADULT ---
HPI - General Adult General Chief complaint: Upper Respiratory Infection Stated complaint: uri Source: patient Mode of arrival: ambulatory Limitations: no limitations History of Present Illness HPI narrative: Patient presents for evaluation of sick symptoms for the last 7 days. Symptoms include sinus congestion, green nasal drainage, productive cough, sore throat, bilateral otalgia. No fever, chills, nausea, vomiting, diarrhea. Two family members currently have sinus infections. She is a former smoker. She had COVID in 2020. She has been vaccinated for COVID. She has taken Mucinex, Benadryl, Sudafed for symptoms. No additional complaints or concerns Related Data Home Medications Medication Instructions Recorded Confirmed omeprazole magnesium 20 mg 40 mg PO DAILY 01/22/19 11/02/21 tablet,delayed release (Prilosec OTC) cholecalciferol (vitamin D3) 50 50 mcg PO 3XW 08/29/19 11/02/21 mcg (2,000 unit) capsule (Vitamin D3) multivitamin 1 tablet PO DAILY 08/29/19 11/02/21 loratadine 10 mg tablet (Claritin) 10 mg PO HS 02/05/21 11/02/21 vitamin B complex (B 1 tablet PO DAILY 02/05/21 11/02/21 Complex-Vitamin B12 tablet) levothyroxine 100 mcg tablet 112 mcg PO DAILY 10/19/21 11/02/21 (Synthroid) Allergies Allergy/AdvReac Type Severity Reaction Status Date / Time aspirin Allergy Severe difficuty Verified 11/02/21 11:41 breathing cefuroxime Allergy Intermediate Itching Verified 11/02/21 11:41 Penicillins Allergy Intermediate Rash Verified 11/02/21 11:41 metformin AdvReac Mild diarrhea Verified 11/02/21 11:41 sitagliptin AdvReac Mild stomach Verified 11/02/21 11:41 pains Review of Systems Review of Systems: CONSTITUTIONAL: Denies fever, chills, or sweats. EYES: Denies visual changes, redness, or discharge. ENT: Reports sinus congestion and, sore throat, bilateral otalgia. CARDIOVASCULAR: Denies chest pain, palpitations, or edema. RESPIRATORY: Reports productive cough. Denies dyspnea. GASTROINTESTINAL: Denies abdominal pain, nausea, vomiting, or diarrhea. GENITOURINARY: Denies dysuria or hematuria. SKIN: Denies rash or itching. MUSCULOSKELETAL: Denies back pain, joint pain, or myalgia. NEUROLOGIC: Denies headache, numbness, dizziness, or weakness. PSYCHIATRIC: Denies anxiety or depression. [facility] Past Medical History Medical History (Updated 11/02/21 @ 12:22 by Marco Dodge, MOSES, ) Anxiety disorder, unspecified BMI 39.0-39.9,adult BMI 40.0-44.9, adult COVID-19 Hypertension complicating diabetes Hypothyroidism Morbid obesity due to excess calories KATHRINE (obstructive sleep apnea) Type 2 diabetes mellitus without complications Surgical History Surgical History H/O dilation and curettage H/O hysterectomy for benign disease H/O: hysterectomy History of partial thyroidectomy History of tonsillectomy Family History Family History Father Hypertension Hyperlipidemia Diabetes mellitus Grandparent Family history of lung cancer Diabetes mellitus Mother Family history of diabetes mellitus in first degree relative Hypertension Hyperlipidemia Sibling Hypertension GERD (gastroesophageal reflux disease) Other Family history of malignant neoplasm Social History Social History Smoking packs per day: 0.5 Smoking cigarettes per day: 10.0 Years smoked: 6 Smoking pack-years: 3.00 Smoking status: Former smoker Tobacco type: cigarettes Second hand tobacco smoke exposure: Yes Smoking end date: 08/27/17 Additional smoking assessment comments: STATES INTERMITTENT TOBACCO USE. Alcohol intake: current Alcohol use details: VERY RARE Substance use: never Substance use type: does not use Additional living arrangements comments: PARENTS, SON, GRANDCHILD Additional occupation/educatio
== END 2021-11-02 12:38 | disposition home or self-care (01) ==
PROVIDERS: Emergency Provider Nurse Practitioner; PCP Family Medicine
DX: U07.1 COVID-19 (principal); I10 Essential (primary) hypertension; E03.9 Hypothyroidism, unspecified; E11.9 Type 2 diabetes mellitus without complications; G47.33 Obstructive sleep apnea (adult) (pediatric); E66.01 Morbid (severe) obesity due to excess calories; Z68.41 Body mass index [BMI] 40.0-44.9, adult; Z90.89 Acquired absence of other organs
CPT/HCPCS: 87081; 87426; 87804; 87880; 99213; C9803; G0463

== ENCOUNTER 2022-01-28 08:57 | Emergency (ER) | payer BC, MEDICAID, SELFPAY ==
[2022-01-28 09:11] VITALS: BP 117/70; PULSE 91; RESP 16; TEMP 36.1; O2SAT 99
--- NOTE | 2022-01-28 09:45 | ED.URI ---
HPI - URI/Sore Throat General Chief Complaint: Upper Respiratory Infection Stated Complaint: Fever,Sore Throat, Bodyaches Time Seen by Provider: 01/28/22 09:46 Source: patient and RN notes reviewed Mode of arrival: ambulatory Limitations: no limitations History of Present Illness HPI Narrative: 41-year-old female presents with concern for positive flu test an on going back to work. Reports she has been sick since Tuesday, her last fever was last night. Reports cough, sore throat, headache, body aches. She was diagnosed by her physician, was given a prescription for Tamiflu but cannot get it filled. MD elicited complaint: cough and sore throat Related Data Home Medications Medication Instructions Recorded Confirmed omeprazole magnesium 20 mg 40 mg PO DAILY 01/22/19 01/28/22 tablet,delayed release (Prilosec OTC) cholecalciferol (vitamin D3) 50 50 mcg PO 3XW 08/29/19 01/28/22 mcg (2,000 unit) capsule (Vitamin D3) multivitamin 1 tablet PO DAILY 08/29/19 01/28/22 loratadine 10 mg tablet (Claritin) 10 mg PO HS 02/05/21 01/28/22 vitamin B complex (B 1 tablet PO DAILY 02/05/21 01/28/22 Complex-Vitamin B12 tablet) levothyroxine 100 mcg tablet 112 mcg PO DAILY 10/19/21 01/28/22 (Synthroid) Allergies Allergy/AdvReac Type Severity Reaction Status Date / Time aspirin Allergy Severe difficuty Verified 01/28/22 09:45 breathing cefuroxime Allergy Intermediate Itching Verified 01/28/22 09:45 Penicillins Allergy Intermediate Rash Verified 01/28/22 09:45 metformin AdvReac Mild diarrhea Verified 01/28/22 09:45 sitagliptin AdvReac Mild stomach Verified 01/28/22 09:45 pains Review of Systems Review of Systems: CONSTITUTIONAL: Reports malaise, chills, sweats, or fever. EYES: Denies visual changes, redness, or discharge. ENT: Reports rhinorrhea, congestion, sore throat. Sinus pain, otalgia CARDIOVASCULAR: Denies chest pain, palpitations, or edema. RESPIRATORY: Reports cough. Denies dyspnea. GASTROINTESTINAL: Denies abdominal pain, nausea, vomiting, diarrhea SKIN: Denies rash or itching. MUSCULOSKELETAL: Reports myalgia. NEUROLOGIC: Reports headache. All systems reviewed & are unremarkable except as noted in HPI and below PMFSH Past Medical History Medical History (Updated 01/28/22 @ 09:58 by Sara Kendrick NP) Anxiety disorder, unspecified BMI 39.0-39.9,adult BMI 40.0-44.9, adult COVID-19 Hypertension complicating diabetes Hypothyroidism Morbid obesity due to excess calories KATHRINE (obstructive sleep apnea) Type 2 diabetes mellitus without complications Surgical History Surgical History (Updated 11/02/21 @ 14:14 by Rome Hunter MD) H/O dilation and curettage H/O hysterectomy for benign disease H/O: hysterectomy History of partial thyroidectomy History of tonsillectomy Family History Family History Father Hypertension Hyperlipidemia Diabetes mellitus Grandparent Family history of lung cancer Diabetes mellitus Mother Family history of diabetes mellitus in first degree relative Hypertension Hyperlipidemia Sibling Hypertension GERD (gastroesophageal reflux disease) Other Family history of malignant neoplasm Social History Social History Smoking packs per day: 0.5 Smoking cigarettes per day: 10.0 Years smoked: 6 Smoking pack-years: 3.00 Smoking status: Former smoker Tobacco type: cigarettes Second hand tobacco smoke exposure: Yes Smoking end date: 08/27/17 Additional smoking assessment comments: STATES INTERMITTENT TOBACCO USE. Alcohol intake: current Alcohol use details: VERY RARE Substance use: never Substance use type: does not use Additional living arrangements comments: PARENTS, SON, GRANDCHILD Additional occupation/education comments: [employer] Gender identity (if verbalized by the patient): Female Sp
== END 2022-01-28 10:11 | disposition home or self-care (01) ==
PROVIDERS: Emergency Provider Nurse Practitioner; PCP Family Medicine
DX: J10.1 Influenza due to other identified influenza virus with other respiratory manifestations (principal); Z87.891 Personal history of nicotine dependence; I10 Essential (primary) hypertension; E11.9 Type 2 diabetes mellitus without complications; G47.33 Obstructive sleep apnea (adult) (pediatric); E03.9 Hypothyroidism, unspecified; E66.01 Morbid (severe) obesity due to excess calories; Z68.39 Body mass index [BMI] 39.0-39.9, adult; Z86.16 Personal history of COVID-19
CPT/HCPCS: 99211; G0463

== ENCOUNTER 2022-02-08 10:52 | Outpatient (CLI) | payer BC, SELFPAY ==
--- NOTE | ~2022-02-08 | XR_ITS ---
Clinical Indication: Cough PA and lateral views of the chest: Comparison: 11/22/2019 Findings: The lungs are clear, without evidence of focal consolidation or pleural effusion. Cardiome diastinal silhouette is within normal limits. Bones and soft tissues are unremarkable. Impression: Normal chest. Reviewed, dictated and finalized at [facility]. HANDLER Impression: Normal chest.
== END 2022-02-08 10:53 | disposition home or self-care (01) ==
PROVIDERS: PCP Family Medicine; Visit Provider Nurse Practitioner Family
DX: R05.9 Cough, unspecified (principal)
CPT/HCPCS: 71046

== ENCOUNTER 2022-06-23 09:02 | Emergency (ER) | payer BC, SELFPAY ==
[2022-06-23 09:16] VITALS: BP 110/75; PULSE 79; RESP 16; TEMP 36.2; O2SAT 99
[2022-06-23 09:31] LABS: Glucose Point of Care 129 mg/dl (65-105)
--- NOTE | 2022-06-23 09:46 | ED.GENADULT ---
HPI - General Adult General Chief complaint: Nausea/Vomiting/Diarrhea Stated complaint: Nausea/Dizziness Time Seen by Provider: 06/23/22 09:35 Source: patient and RN notes reviewed Mode of arrival: ambulatory Limitations: no limitations History of Present Illness HPI narrative: Patient presents today complaining of dizziness since this morning. States she also had some nausea which resolved and headache that she currently rates 1/10 that has significantly improved since onset. She denies any additional symptoms such as chest pain, shortness of breath, vision changes, numbness or tingling, ear pain. She does have some congestion and rhinorrhea that is present with her seasonal allergies that she currently takes Claritin and Mucinex occasionally for. She has tried no [id number] treatment for her current symptoms. She is diabetic. She did not check her blood sugar or eat prior to arrival this morning. Blood sugar was 129 after arrival at Urgent Care today. Related Data Home Medications Medication Instructions Recorded Confirmed omeprazole magnesium 20 mg 40 mg PO DAILY 01/22/19 06/23/22 tablet,delayed release (Prilosec OTC) cholecalciferol (vitamin D3) 50 50 mcg PO 3XW 08/29/19 06/23/22 mcg (2,000 unit) capsule (Vitamin D3) multivitamin 1 tablet PO DAILY 08/29/19 06/23/22 loratadine 10 mg tablet (Claritin) 10 mg PO HS 02/05/21 06/23/22 vitamin B complex (B 1 tablet PO DAILY 02/05/21 06/23/22 Complex-Vitamin B12 tablet) levothyroxine 100 mcg tablet 112 mcg PO DAILY 10/19/21 06/23/22 (Synthroid) magnesium 250 mg tablet 250 mg PO DAILY 03/17/22 06/23/22 semaglutide 0.25 mg or 0.5 mg (2 0.5 mg subcut WEEKLY 03/17/22 06/23/22 mg/1.5 mL) subcutaneous pen injector (Ozempic) fenofibrate nanocrystallized 145 145 mg PO DAILY 06/23/22 06/23/22 mg tablet Allergies Allergy/AdvReac Type Severity Reaction Status Date / Time aspirin Allergy Severe difficuty Verified 06/23/22 09:09 breathing cefuroxime Allergy Intermediate Itching Verified 06/23/22 09:09 Penicillins Allergy Intermediate Rash Verified 06/23/22 09:09 metformin AdvReac Mild diarrhea Verified 06/23/22 09:09 sitagliptin AdvReac Mild stomach Verified 06/23/22 09:09 pains Review of Systems Review of Systems: CONSTITUTIONAL: Denies body aches, fever, chills, or sweats. EYES: Denies visual changes, redness, or discharge. ENT: Denies rhinorrhea, congestion, sore throat, or otalgia. CARDIOVASCULAR: Denies chest pain, palpitations, or edema. RESPIRATORY: Denies cough or dyspnea. GASTROINTESTINAL: Denies abdominal pain, nausea, vomiting, or diarrhea. GENITOURINARY: Denies dysuria or hematuria. SKIN: Denies rash, itching, or wounds. MUSCULOSKELETAL: Denies back pain, joint pain, or myalgia. NEUROLOGIC: Denies numbness, tingling, or weakness.+ dizziness, headache PSYCH: Denies depression or anxiety. [facility] Past Medical History Medical History Adult BMI 38.0-38.9 kg/sq m Anxiety disorder, unspecified BMI 39.0-39.9,adult BMI 40.0-44.9, adult COVID-19 Hypertension complicating diabetes Hypothyroidism Morbid obesity due to excess calories KATHRINE (obstructive sleep apnea) Type 2 diabetes mellitus without complications Surgical History Surgical History H/O dilation and curettage H/O hysterectomy for benign disease H/O: hysterectomy History of partial thyroidectomy History of tonsillectomy Family History Family History Father Hypertension Hyperlipidemia Diabetes mellitus Grandparent Family history of lung cancer Diabetes mellitus Mother Family history of diabetes mellitus in first degree relative Hypertension Hyperlipidemia Sibling Hypertension GERD (gastroesophageal reflux disease) Other Family history of malignant neoplasm Soci
== END 2022-06-23 10:13 | disposition home or self-care (01) ==
PROVIDERS: Emergency Provider Nurse Practitioner; PCP Family Medicine
DX: R42 Dizziness and giddiness (principal); Z87.891 Personal history of nicotine dependence; I10 Essential (primary) hypertension; E03.9 Hypothyroidism, unspecified; E11.9 Type 2 diabetes mellitus without complications; E66.01 Morbid (severe) obesity due to excess calories; Z68.38 Body mass index [BMI] 38.0-38.9, adult; Z86.16 Personal history of COVID-19; Z90.89 Acquired absence of other organs
CPT/HCPCS: 82948; 99212; G0463

== ENCOUNTER 2022-12-13 08:19 | Outpatient (CLI) | payer BC, SELFPAY ==
--- NOTE | ~2022-12-13 | MM_ITS ---
EXAMINATION: MM screening [facility] BI w hug[facility] HISTORY: Screening TECHNIQUE: Craniocaudal and mediolateral oblique 3-D tomosynthesis images were obtained and synthetic 2-D images were generated. CAD analysis was submitted and interpreted. COMPARISON: 09/23/2014 BREAST PARENCHYMAL COMPOSITION: The breasts are almost entirely fatty. FINDINGS: There is no evidence of suspicious mass, calcification, or architectural distortion to sugg est malignancy in either breast. There has been no suspicious interval change. IMPRESSION: 1. No mammographic evidence of malignancy. 2. Recommend routine screening mammography in one year. BI-RADS Category 1: Negative Reviewed, dictated and finalized at location A.
== END 2022-12-13 08:20 | disposition home or self-care (01) ==
LOC: ANHIMG 08:21
PROVIDERS: PCP Family Medicine; Visit Provider Nurse Practitioner Family
DX: Z12.31 Encounter for screening mammogram for malignant neoplasm of breast (principal)
CPT/HCPCS: 77063; 77067

== ENCOUNTER 2023-11-24 09:54 | Emergency (ER) | payer OTHER, SELFPAY ==
[2023-11-24 10:22] VITALS: BP 118/84; PULSE 92; RESP 16; TEMP 36.2; O2SAT 100
--- NOTE | 2023-11-24 10:28 | ED.GENADULT ---
HPI - General Adult General Chief complaint: Upper Respiratory Infection Stated complaint: SORE IN MOUTH/POSSIBLE YEAST INFECTION Source: patient and RN notes reviewed Mode of arrival: ambulatory Limitations: no limitations History of Present Illness HPI narrative: 42 y/o female presented for multiple concerns. 1. States she has painful sores on the end of her tongue for about 3 days. History of canker sores. No treatment prior to arrival. 2. Reports a boil to vaginal area for a few days. Painful with certain positions. Denies drainage from the site. Reports some white vaginal discharge. 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 Has one sexual partner. Due to her history of diabetes, she is concerned for yeast infection. Used OTC miconazole 2 nights ago. Denies significant itching. 3. Reports 'internal hemorrhoids' and is unsure how to treat. Says they are only painful with wiping. Endorses recent constipation. Denies rectal pain, hematochezia or melena. Related Data Home Medications Medication Instructions Recorded Confirmed omeprazole magnesium 20 mg 40 mg PO DAILY 01/22/19 06/22/23 tablet,delayed release (Prilosec OTC) cholecalciferol (vitamin D3) 50 50 mcg PO 3XW 08/29/19 06/22/23 mcg (2,000 unit) capsule (Vitamin D3) multivitamin 1 tablet PO DAILY 08/29/19 06/22/23 vitamin B complex (B 1 tablet PO DAILY 02/05/21 06/22/23 Complex-Vitamin B12 tablet) levothyroxine 100 mcg tablet 112 mcg PO DAILY 10/19/21 06/22/23 (Synthroid) fenofibrate nanocrystallized 145 145 mg PO DAILY 06/23/22 06/22/23 mg tablet Allergies Allergy/AdvReac Type Severity Reaction Status Date / Time aspirin Allergy Severe difficuty Verified 11/24/23 10:19 breathing cefuroxime Allergy Intermediate Itching Verified 11/24/23 10:19 Penicillins Allergy Intermediate Rash Verified 11/24/23 10:19 metformin AdvReac Mild diarrhea Verified 11/24/23 10:19 sitagliptin AdvReac Mild stomach Verified 11/24/23 10:19 pains Review of Systems Review of Systems: CONSTITUTIONAL: Denies body aches, fever, chills, or sweats. ENT: Reports sores on tongue CARDIOVASCULAR: Denies chest pain, palpitations, or edema. RESPIRATORY: Denies cough or dyspnea. GASTROINTESTINAL: Denies abdominal pain, nausea, vomiting, or diarrhea. GENITOURINARY: Reports vaginal discharge. Denies dysuria, frequency, urgency, hematuria, flank pain SKIN: reports boil to vaginal area MUSCULOSKELETAL: Denies back pain or myalgia. [facility] Past Medical History Medical History Adult BMI 38.0-38.9 kg/sq m Anxiety disorder, unspecified BMI 36.0-36.9,adult BMI 37.0-37.9, adult BMI 39.0-39.9,adult BMI 40.0-44.9, adult COVID-19 Hypertension complicating diabetes Hypothyroidism Morbid obesity due to excess calories KATHRINE (obstructive sleep apnea) Type 2 diabetes mellitus without complications Surgical History Surgical History H/O dilation and curettage H/O hysterectomy for benign disease H/O: hysterectomy History of partial thyroidectomy History of tonsillectomy Family History Family History Father Hypertension Hyperlipidemia Diabetes mellitus Grandparent Family history of lung cancer Diabetes mellitus Mother Family history of diabetes mellitus in first degree relative Hypertension Hyperlipidemia Sibling Hypertension GERD (gastroesophageal reflux disease) Depression Other Family history of malignant neoplasm Social History Social History Smoking packs per day: 0.5 Smoking cigarettes per day: 10.0 Years smoked: 6 Smoking pack-years: 3.00 Smoking status: Former smoker Tobacco type: cigarettes Second hand tobacco smoke exposure: Yes Smoking end date: 08/27/17 Additional smoking assessment comments:
[2023-11-24 20:39] LABS: Trichomonas Vag PCR NOT DETECTED (NOT DETECTE)
[2023-11-24 21:02] LABS: Chlamydia trachomatis NOT DETECTED (NOT DETECTE); Neisseria gonorrhoeae PCR NOT DETECTED (NOT DETECTE)
[2023-11-25 16:03] LABS: Bacterial Vaginosis NEGATIVE (NEGATIVE)
== END 2023-11-24 11:05 | disposition home or self-care (01) ==
PROVIDERS: Emergency Provider Nurse Practitioner Family; PCP Family Medicine
DX: N76.0 Acute vaginitis (principal); K14.6 Glossodynia; Z87.891 Personal history of nicotine dependence; I10 Essential (primary) hypertension; E11.9 Type 2 diabetes mellitus without complications; E03.9 Hypothyroidism, unspecified; E66.01 Morbid (severe) obesity due to excess calories; Z68.37 Body mass index [BMI] 37.0-37.9, adult; Z90.89 Acquired absence of other organs
CPT/HCPCS: 81513; 87491; 87591; 87661; 99213; G0463

== ENCOUNTER 2024-02-05 11:13 | Emergency (ER) | payer OTHER, SELFPAY ==
--- NOTE | ~2024-02-05 | XR_ITS ---
EXAMINATION: XR chest 2V DATE: 02/05/2024 11:36 INDICATION: Cough. TECHNIQUE: Frontal and lateral views of the chest were obtained. COMPARISON: Chest 2 views 02/08/2022 FINDINGS: There is no pneumonia, pleural effusion, or pneumothorax. The heart size is normal. IMPRESSION: 1. No acute cardiopulmonary disease. Reviewed, dictated and finalized at location A. [employer]
[2024-02-05 11:22] VITALS: BP 113/67; PULSE 93; RESP 19; TEMP 36.3; O2SAT 100
--- NOTE | 2024-02-05 11:24 | ED_ITS ---
HPI - General Adult General Chief complaint: Upper Respiratory Infection Stated complaint: Cough/ Time Seen by Provider: 02/05/24 11:25 Source: patient, RN notes reviewed and old records reviewed Mode of arrival: ambulatory Limitations: no limitations History of Present Illness HPI narrative: 43-year-old female presents to the [facility] with complaints of a cough x2 weeks. Was treated with a steroid and cough medicine via telehealth doctor. Was told that it was probably viral. Patient is most concerned that she has pneumonia. Treatments prior to arrival: other (Steroids, cough medicine) Related Data Home Medications Medication Instructions Recorded Confirmed cholecalciferol (vitamin D3) 50 50 mcg PO 3XW 08/29/19 02/05/24 mcg (2,000 unit) capsule (Vitamin D3) multivitamin 1 tablet PO DAILY 08/29/19 02/05/24 vitamin B complex (B 1 tablet PO DAILY 02/05/21 02/05/24 Complex-Vitamin B12 tablet) levothyroxine 100 mcg tablet 112 mcg PO DAILY 10/19/21 02/05/24 (Synthroid) fenofibrate nanocrystallized 145 145 mg PO DAILY 06/23/22 02/05/24 mg tablet esomeprazole magnesium 20 mg 20 mg PO DAILY 11/24/23 02/05/24 capsule,delayed release (Nexium) Allergies Allergy/AdvReac Type Severity Reaction Status Date / Time aspirin Allergy Severe difficuty Verified 02/05/24 11:36 breathing cefuroxime Allergy Intermediate Itching Verified 02/05/24 11:36 Penicillins Allergy Intermediate Rash Verified 02/05/24 11:36 metformin AdvReac Mild diarrhea Verified 02/05/24 11:36 sitagliptin AdvReac Mild stomach Verified 02/05/24 11:36 pains Review of Systems Review of Systems: All systems reviewed & are unremarkable except as noted in HPI and below Constitutional: Constitutional: Reports no additional constitutional complaints ENT: Reports as per HPI Cardiovascular: Cardiovascular: Reports no additional cardiovascular comp laints, Denies chest pain and Denies dyspnea Respiratory: Respiratory: Reports as per HPI, Reports chest congestion, Reports cough and Denies dyspnea Gastrointestinal: Gastrointestinal: Reports no additional gastrointestinal complaints, Denies abdominal pain, Denies nausea and Denies vomiting Musculoskeletal: Musculoskeletal: Reports no additional musculoskeletal complaints Integumentary/Breasts: Skin/Breast: Reports system reviewed and no additional complaints, except as docu PMFSH Past Medical History Medical History Adult BMI 38.0-38.9 kg/sq m Anxiety disorder, unspecified BMI 36.0-36.9,adult BMI 37.0-37.9, adult BMI 39.0-39.9,adult BMI 40.0-44.9, adult COVID-19 Hypertension complicating diabetes Hypothyroidism Morbid obesity due to excess calories KATHRINE (obstructive sleep apnea) Type 2 diabetes mellitus without complications Surgical History Surgical History H/O dilation and curettage H/O hysterectomy for benign disease H/O: hysterectomy History of partial thyroidectomy History of tonsillectomy Family History Family History Father Hypertension Hyperlipidemia Diabetes mellitus Grandparent Family history of lung cancer Diabetes mellitus Mother Family history of diabetes mellitus in first degree relative Hypertension Hyperlipidemia Sibling Hypertension GERD (gastroesophageal reflux disease) Depression Other Family history of malignant neoplasm Social History Social History Smoking packs per day: 0.5 Smoking cigarettes per day: 10.0 Years smoked: 6 Smoking pack-years: 3.00 Smoking status: Former smoker Tobacco type: cigarettes Second hand tobacco smoke exposure: Yes Smoking end date: 08/27/17 Additional smoking assessment comments: STATES INTERMITTENT TOBACCO USE. Alcohol intake: current Alcohol use details: VERY RARE Substance use: never Substance use type: does not use Lack of Transportation: No Lack of Food: Never True Current Housing: I Have Housing Concerned About Future Housing: No Difficulty Paying Gas/Electric Bills: No Difficulty Paying for Meds: No Currently Unemployed: No Education: Trade/Vocational Certificate Difficulty w/ Childcare or Family Care: No Living arrangements: with family Additional living arrangements comments: PARENTS, SON, GRANDCHILD Occupation/Education: occupation Additional occupation/education comments: [employer] Gender identity (if verbalized by the patient): Female Spiritual care concerns: No Comments At the time of my signature, I reviewed and agree with the nursing past medical, surgical, social, and family history. There is no relevant family history pertinent to the patient complaint. Exam Const: General: cooperative, no acute distress, well developed, alert, tired appearing, uncomfortable and well nourished Nutritional Appearance: well nourished Orientation/consciousness: patient oriented x3 Limitations: no limitations HENMT: Head: normal to inspection Ears: hearing grossly normal bilaterally, external ears normal, TM's normal bilaterally, EAC's normal, mastoids normal and no periauricular adenopathy Face/Nose/Sinus: Normal external nose present, normal facial exam and face symmetric Face and sinus: normal facial exam and face symmetric Mouth: Yes Normal oral and palatal mucosa present, Yes lip normal and Yes tongue normal Throat: uvula midline, postnasal drainage and no uvular edema Eyes: General: appearance normal, both eyes and all related structures Alignment and Position: alignment normal Periorbital: periorbital findings n ormal Neck: Neck: normal visual inspection, full ROM, no lymphadenopathy and no meningeal signs Chest: Chest palpation & inspection: normal inspection of the chest Resp: Effort & Inspection: normal respiratory effort and able to speak in complete sentences Auscultation: clear to auscultation bilaterally, no crackles, no rales, no rhonchi and no wheezes Cardio: Rate: regular rate Skin: General skin exam: normal color and no rashes or lesions noted Lesions: no lesions Rashes: no rashes Wounds: no wounds Neuro: General: patient oriented x3, gait normal, tone normal, moves all extremities and no meningeal signs Cognition (Neuro): normal cognition Speech: normal speech Gait exam (Neuro): Normal gait present Extrem: General: normal to inspection, full ROM, capillary refill normal and normal gait Psych: Appearance: grossly normal and well kempt Mental Status: mental status grossly normal Speech and movement: Normal speech and movement present and Clear speech present Affect: normal affect Attitude: cooperative Course Course Level of Care: Express Care Visit Vital Signs Vital signs: Vital Signs Temperature 97.3 F L 02/05/24 11:22 Pulse Rate 93 02/05/24 11:22 Respiratory Rate 19 02/05/24 11:22 Blood Pressure 113/67 02/05/24 11:22 Pulse Oximetry 100 02/05/24 11:22 Oxygen Delivery Room Air 02/05/24 11:22 Temperature 97.3 F L 02/05/24 11:22 Pulse Rate 93 02/05/24 11:22 Respiratory Rate 19 02/05/24 11:22 Blood Pressure 113/67 02/05/24 11:22 Pulse Oximetry 100 02/05/24 11:22 Oxygen Delivery Room Air 02/05/24 11:22 Reviewed Medical Decision Making MDM Narrative Medical decision making narrative: Patient sitting comfortably in exam room. Nontoxic, vitals stable. Patient in no acute distress Patient presents for concerns for pneumonia, treated with steroids Due to length of symptoms patient being treated with doxycycline for both sinusitis, bronchitis Discharge instructions reviewed with patient, as well as provided in writing per nursing staff. The instructions also include specific and strict return/GO TO THE ER as well as f/u information. All questions have been answered, and the patient deny any further questions with discharge and discharge plan. Some parts of this dictation were generated by voice recognition software and may contain typographical and/or grammatical inaccuracies. Differential Diagnosis Differential Diagnosis: Pneumonia, sinusitis, bronchitis, URI Medical Records Medical records reviewed: Yes I reviewed the external patient's medical records. Vital Signs Vital Signs: Vital Signs Temperature 97.3 F L 02/05/24 11:22 Pulse Rate 93 02/05/24 11:22 Respiratory Rate 19 02/05/24 11:22 Blood Pressure 113/67 02/05/24 11:22 Pulse Oximetry 100 02/05/24 11:22 Oxygen Delivery Room Air 02/05/24 11:22 Temperature 97.3 F L 02/05/24 11:22 Pulse Rate 93 02/05/24 11:22 Respiratory Rate 19 02/05/24 11:22 Blood Pressure 113/67 02/05/24 11:22 Pulse Oximetry 100 02/05/24 11:22 Oxygen Delivery Room Air 02/05/24 11:22 Reviewed Lab Data Lab results reviewed: Yes I reviewed the patient's lab results. Labs: Reviewed Critical Care Time Critical Care Time Critical Care Time: No Discharge Plan Discharge Clinical Impression: Sinusitis, Bronchitis Patient Disposition: Home, Self-Care Condition: Stable Instructions: Antibiotic Form, Sinusitis (ED), Acute Bronchitis (ED) Additional Instructions: It is very important to treat your symptoms. Drink Plenty of water, Gatorade, Pedialyte, ice pops or Jell-O. -Alternate Tylenol and Motrin per package directions for fever or pain. You can alternate every 4 hours -Antihistamine medication such as Benadryl at night and Zyrtec/Claritin/Zoe during the day can help improve symptoms. -doing daily nasal irrigations can help relieve pressure your sinuses. Things like a Neti pot -Use Flonase twice a day for 5 days then daily to help reduce the inflammation and dry up your sinuses. -You can also use Mucinex. Be sure to drink plenty of water with this medication at least 8 ounces with every dose and it is important to drink 8 to 10 glasses of water per day. Water is a natural decongestant -Eat and drink things that are easy to swallow, like tea or soup, or popsicles. -Oral rinses such as: Salt water gargles and/or may use topical anesthetic (eg. Chloraseptic spray) or lozenges to relieve dryness or throat pain). -Frequent hand washing or hand dust collector operator is one of the best ways to prevent spread of infection. -Using a vaporizer or humidifier at night will also help thin secretions and help with coughing up phlegm. -Follow up with primary care provider in 7-10 days if condition is not improving - For new or worsening symptoms go directly to the nearest ER Patient Language: Sammarinese Prescriptions: New doxycycline monohydrate 100 mg tablet 100 mg PO BID Qty: 14 0RF No Action esomeprazole magnesium [Nexium] 20 mg Capsule,Delayed Release(Dr/Ec) 20 mg PO DAILY fenofibrate nanocrystallized 145 mg tablet 145 mg PO DAILY levothyroxine [Synthroid] 100 mcg tablet 112 mcg PO DAILY Patient Comments: TAKES 100 MCG, TUESDAY TAKES 200 MCG Jardiance 25 mg tablet 25 mg PO DAILY Qty: 30 0RF multivitamin Tablet 1 tablet PO DAILY cholecalciferol (vitamin D3) [Vitamin D3] 50 mcg (2,000 unit) Capsule 50 mcg PO 3XW vitamin B complex [B Complex-Vitamin B12] Tablet 1 tablet PO DAILY acyclovir 400 mg tablet 400 mg PO TID PRN (Reason: Cold Sores) Qty: 90 1RF bupropion HCl 300 mg tablet extended release 24 hr 300 mg PO QAM Qty: 90 1RF venlafaxine [Effexor XR] 150 mg capsule,extended release 24hr 150 mg PO BID Qty: 180 1RF alprazolam [Xanax] 0.5 mg tablet 0.5 mg PO TID PRN (Reason: anxiety) Qty: 30 0RF metoprolol tartrate 25 mg tablet 25 mg PO BID Qty: 180 1RF Follow-up/Referrals: Rome Hunter MD [Primary Care Provider] - 2 Weeks ([facility] care follow up ) Stand Alone Forms: Work/School Release IP Time of Disposition: 11:45
== END 2024-02-05 11:55 | disposition home or self-care (01) ==
PROVIDERS: Emergency Provider Nurse Practitioner; PCP Family Medicine
DX: J32.9 Chronic sinusitis, unspecified (principal); J40 Bronchitis, not specified as acute or chronic; I10 Essential (primary) hypertension; E11.9 Type 2 diabetes mellitus without complications; E03.9 Hypothyroidism, unspecified; E66.01 Morbid (severe) obesity due to excess calories; Z68.36 Body mass index [BMI] 36.0-36.9, adult; Z86.16 Personal history of COVID-19; Z90.89 Acquired absence of other organs
CPT/HCPCS: 71046; 99213; G0463